=== PATIENT | female | born 1995 | race Caucasian/White ===

== ENCOUNTER 2020-12-17 08:54 | Day surgery (SDC) | payer SELFPAY ==
[2020-12-17] MEDS ORDERED: hydrALAZINE 20 MG/ML VIAL SLOW IVP PRN (10:32)
== END 2020-12-17 10:51 | disposition home or self-care (01) ==
LOC: CSHLD/OP 08:54
PROVIDERS: ATTEND Obstetrics & Gynecology
DX: O44.52 Low lying placenta with hemorrhage, second trimester (principal); Z3A.25 25 weeks gestation of pregnancy; Z79.899 Other long term (current) drug therapy
CPT/HCPCS: 99282

== ENCOUNTER 2021-03-12 19:23 | Day surgery (SDC) | payer SELFPAY ==
[2021-03-12] MEDS ORDERED: hydrALAZINE 20 MG/ML VIAL SLOW IVP PRN (21:27)
[2021-03-12 22:44] VITALS: BMI 24.3
== END 2021-03-12 21:45 | disposition home or self-care (01) ==
LOC: CSHLD/OP 19:23
PROVIDERS: ATTEND Obstetrics & Gynecology
DX: O47.1 False labor at or after 37 completed weeks of gestation (principal); O44.43 Low lying placenta NOS or without hemorrhage, third trimester; Z3A.37 37 weeks gestation of pregnancy; Z79.2 Long term (current) use of antibiotics
CPT/HCPCS: 99282

== ENCOUNTER 2021-03-24 03:20 | Inpatient (IN) | payer OTHER, SELFPAY ==
[2021-03-24] MEDS ORDERED: Methylergonovine 0.2 MG/ML VIAL IM PRN (03:39)
[2021-03-24] MEDS ORDERED: Promethazine HCl 25 MG/ML VIAL IM PRN (03:39)
[2021-03-24] MEDS ORDERED: Ondansetron PF 4 MG/2 ML Vial IVP PRN (03:39)
[2021-03-24] MEDS ORDERED: hydrALAZINE 20 MG/ML VIAL SLOW IVP PRN ×2 (03:39→07:08)
[2021-03-24] MEDS ORDERED: Lidocaine 1% (PF) 30 ML VIAL SC PRN (03:39)
[2021-03-24] MEDS ORDERED: Butorphanol Tartrate 1 MG/ML VIAL SLOW IVP PRN (03:39)
[2021-03-24] MEDS ORDERED: Misoprostol 200 MCG TAB PR PRN (03:39)
[2021-03-24] MEDS ORDERED: Carboprost 250 MCG/ML AMP IM PRN (03:39)
[2021-03-24] MEDS ORDERED: Diphenoxylate HCl/Atropine Tablet PO PRN (03:39)
[2021-03-24] MEDS ORDERED: Ibuprofen 800 MG TAB PO PRN (03:39)
[2021-03-24] MEDS ORDERED: NS w/ Oxytocin 30 units 500 ML IV SCH ×2 (03:45→07:15)
[2021-03-24] MEDS ORDERED: Lactated Ringer's 1,000 ML IV SCH (03:45)
[2021-03-24] MEDS ORDERED: NS w/ Oxytocin 30 units 500 ML ONE (04:10)
[2021-03-24 04:41] LABS: Hemoglobin 11.9 g/dL (12.0-15.5); Mean Corpuscular HGB CONC 34.8 g/dL (32.0-36.0); Mean Corpuscular Hemoglobin 32.6 pg (27.0-33.0); Mean Corpuscular Volume 93.7 fl (81.6-98.3); Mean Platelet Volume 10.3 fl (7.4-10.4); Platelet Count 190 10x3/uL (150-450); RBC Distribution Width 13.3 % (11.5-14.5); Red Blood Cell (RBC) Count 3.65 10x6/uL (3.90-5.03); White Blood Cell (WBC) Count 11.4 10x3/uL (3.5-10.5)
[2021-03-24 05:19] LABS: Syphilis Antibody Nonreactive (Nonreactive); Syphilis Antibody Index 0.03 S/CO (<1.00 Non-Reactive)
[2021-03-24 05:20] LABS: Hep B Surf Ag Non-Reactive S/CO (NonReactive)
[2021-03-24 05:26] LABS: HBSAg Index 0.17 S/CO (0-0.99)
[2021-03-24 05:37] LABS: SARS-CoV-2 NAA Rapid Test Not Detected (NotDetected)
[2021-03-24 05:54] VITALS: BMI 24.5
[2021-03-24] MEDS ORDERED: Bisacodyl 10 MG SUPP PR PRN (07:08)
[2021-03-24] MEDS ORDERED: Milk Of Magnesia 30 ML UDCUP PO PRN (07:08)
[2021-03-24 08:50] LABS: Platelet Count 178 10x3/uL (150-450)
[2021-03-24 08:53] LABS: Hemoglobin 9.5 g/dL (12.0-15.5); Mean Corpuscular HGB CONC 33.3 g/dL (32.0-36.0); Mean Corpuscular Hemoglobin 31.9 pg (27.0-33.0); Mean Corpuscular Volume 95.6 fl (81.6-98.3); Mean Platelet Volume 10.7 fl (7.4-10.4); Platelet Count 167 10x3/uL (150-450); RBC Distribution Width 13.3 % (11.5-14.5); Red Blood Cell (RBC) Count 2.98 10x6/uL (3.90-5.03); White Blood Cell (WBC) Count 20.6 10x3/uL (3.5-10.5)
[2021-03-24 09:09] LABS: MDiff Complete? YES
[2021-03-24 09:10] LABS: D-Dimer Test 4.64 mg/L FEU (0.19-0.50); Fibrinogen 366 mg/dL (220-504); INR-International Normal Ratio 0.9; PTT 27.9 sec (22.0-33.0); Prothrombin Time 10.3 sec (9.5-12.1)
[2021-03-24] MEDS: Ferrous Sulfate 325 MG TAB PO SCH ×2 (09:14→16:31)
[2021-03-24] MEDS: Ampicillin/Sulbactam 3 GM in Sodium Chloride 0.9% 100 ML IVPB SCH ×3 (09:15→21:10)
[2021-03-24 09:28] LABS: Band 3 % (5-11); Lymphocytes 6 % (21-51); Monocytes 3 % (0-10); Neutrophil 88 % (42-75); Platelet Morphology Comment Appears Adequate
[2021-03-24 09:29] LABS: RBC Morphology Normal
[2021-03-24 10:06] LABS: FSP-Qualitative ABNORMAL (Normal); FSP-Semiquantitative >=5 & <20 mcg/mL (Less than 5)
[2021-03-24] MEDS: Docusate Calcium (SURFAK) 240 MG CAP PO SCH ×2 (12:06→21:11)
[2021-03-25] MEDS: Ibuprofen 800 MG TAB PO SCH ×3 (00:08→17:26)
[2021-03-25 04:55] VITALS: TEMP 98.2
[2021-03-25] MEDS ORDERED: Boostrix 0.5 ML (Tdap) VIAL IM ONE (07:08)
[2021-03-25 08:00] VITALS: BP 102/55
[2021-03-25] MEDS: Docusate Calcium (SURFAK) 240 MG CAP PO SCH (08:35)
[2021-03-25] MEDS: Ferrous Sulfate 325 MG TAB PO SCH ×2 (08:35→17:26)
[2021-03-25] MEDS ORDERED: Ibuprofen 800 MG TAB PO SCH (16:30)
== END 2021-03-25 17:32 | disposition home or self-care (01) | DRG 807 ==
LOC: CSHLD/OP 03:20 → CSHLD 03:21 → CSHPP 11:47
PROVIDERS: ADMIT Student in an Organized Health Care Education/Training Program; ATTEND Student in an Organized Health Care Education/Training Program
PROC: 10E0XZZ Delivery of Products of Conception, External Approach (ICD-10-PCS; principal; 2021-03-24)
PROC: 0UQMXZZ Repair Vulva, External Approach (ICD-10-PCS; 2021-03-24)
DX: O69.81X0 Labor and delivery complicated by cord around neck, without compression, not applicable or unspecified (principal); Z37.0 Single live birth; O71.82 Other specified trauma to perineum and vulva; O99.02 Anemia complicating childbirth; Z3A.39 39 weeks gestation of pregnancy; Z20.822 Contact with and (suspected) exposure to COVID-19; O73.0 Retained placenta without hemorrhage
CPT/HCPCS: 36415; 85027; 85049; 85300; 85362; 85379; 85384; 85610; 85730; 86780; 86850; 86900; 86901; 87340; 88307; 99285; J0295; J0595; J2001; J2590; J3490; U0002